=== PATIENT | female | born 1995 | race Caucasian/White ===

== ENCOUNTER 2024-04-05 11:07 | Emergency (ER) | payer OTHER, SELFPAY ==
[2024-04-05 11:13] VITALS: BP 149/102
[2024-04-05 12:01] VITALS: BP 141/94
[2024-04-05] MEDS: BENTYL 20 MG IM (12:10)
[2024-04-05] MEDS: NSS 1000 IV (12:10)
[2024-04-05] MEDS: REGLAN 10 MG IV (12:10)
--- NOTE | 2024-04-05 12:13 | ED.GENMED ---
History of Present Illness
General
Chief Complaint: Abdominal Pain
Source: patient
Exam Limitations: none
Time Seen by Provider: 04/05/24 11:48
Nursing documentation reviewed up to this point in time: agreed with
History of Present Illness
History of Present Illness:
48-year-old female presenting to the emergency department today with concerns of initial onset of diarrhea persisting loose brown 2 days ago then developing nausea vomiting over the next few hours some stomach cramping has been intermittently
uncomfortable over the past 2 days. Episode of vomiting this morning but overall symptoms are slightly improved. Has had chills. Denies any chest pain shortness of breath does have a mild headache does of a history of migraines.
Past History
Past History
ED Past Medical History: Other (migraines)
ED Past Surgical History: Orthopedic
Social History
Tobacco: Non-smoker
Alcohol: Occasional
Drug: None
Personal:
Living: with family
Employment: Employed
Review of Systems
Review of Systems
Allergies reviewed?: Yes
All Other Systems: ROS reviewed and negative except as documented in HPI and ROS
Phy Exam
Physical Exam
Physical Exam:
GENERAL: Alert , in no apparent distress
EYE: pupils equal and reactive
NECK: Supple, no significant adenopathy.
ENT: o/p clr, mmm.
CARDIAC: Regular rate and rhythm .
LUNGS: Clear breath sounds bilaterally, no acute respiratory distress, no wheezes/rales/rhonchi
ABDOMEN: Soft, without focal tenderness, no r/g, no cvat
NEUROLOGICAL: Alert and oriented, no focal neuro deficits
SKIN: Warm and dry, skin intact.
MUSCULOSKELETAL: No edema, well perfused.
PSYCH: Normal and appropriate interaction.
Course
Orders/Labs/Results
Orders:
Orders
04/05/24 11:14
Test Result ONCE
04/05/24 12:02
Dicyclomine HCl [Bentyl] 20 mg IM NOW STA
Metoclopramide [Reglan] 10 mg IV NOW STA
04/05/24 12:03
0.9% Sodium Chloride 1000 ml [Nss] 1,000 ml IV BOLUS
04/05/24 12:07
Complete Blood Count/With Diff Urgent
Comprehensive Metabolic Panel Urgent
HCG, Serum Qualitative Screen Urgent
Lipase Urgent
04/05/24 14:12
Famotidine [Pepcid] 20 mg IV NOW STA
Ketorolac [Toradol] 15 mg IV NOW STA
Ondansetron Injectable [Zofran] 4 mg IV NOW STA
Abnormal Lab Results
04/05/24
12:07
MCHC 32.9 L g/dL
(33.0-37.0)
Monocytes % 12.2 H %
(1.7-9.3)
Carbon Dioxide 21 L mmol/L
(22-30)
BUN 5 L mg/dl
(7-17)
04/05/24 12:07
04/05/24 12:07
Vital Signs
Initial and Last Documented VS:
Initial Vital Signs
Temp Pulse Resp Pulse Ox
99.6 F 105 18 100
04/05/24 11:09 04/05/24 11:09 04/05/24 11:09 04/05/24 11:09
Last Documented Vital Signs
Temp Pulse Resp BP Pulse Ox
99.6 F 100 18 141/94 100
04/05/24 11:13 04/05/24 11:13 04/05/24 12:05 04/05/24 12:01 04/05/24 12:01
MDM/Problems Addressed
MDM/Problems Addressed:
28-year-old female presenting to the emergency department today with concerns of initial diarrhea with developing nausea vomiting and stomach cramping over the past 2 days. Has had chills 1 episode of vomiting today but the maximal amount of
vomiting was 2 days ago. Diarrhea has been slightly improving as well. On arrival here mildly tachycardic temperature of 99.6 patient generally well-appearing no acute distress no ongoing retching or vomiting. Abdomen generally soft. Reassessed
patient claims that symptoms are significantly improved stable for outpatient management with likely viral gastroenteritis return precautions given.
*Critical Care Note
Total Time (30-74mins, 75-104mins- exclusive of procedures): Not Applicable
ED Attending Note
-
Portions of this chart may have been created with voice recognition software.� Occasional wrong word or��sound alike� substitutions may have occurred due to the inherent limitations of voice recognition software.
Discharge Plan
Departure
Patient Disposition: Home (Routine Discharge)
Date of Disposition: 04/05/24
Time of Disposition: 15:08
Patient with high blood pressure during this ER visit?: No
Condition: Good
Covid-19: Not Applicable
Discharge Problem:
Nausea, vomiting, and diarrhea
Instructions: Diarrhea in teens and adults, Viral gastroenteritis in adults
Prescriptions:
New
ondansetron 4 mg tablet,disintegrating
4 mg PO Q8H PRN (Reason: nausea and vomiting) Qty: 7 0RF
loperamide [Imodium A-D] 2 mg capsule
2 mg PO Q6H PRN (Reason: loose stool) Qty: 5 0RF
Referrals:
Romie Kothari PA-C [Family Provider] -
Activity Restrictions/Additional Instructions:
You came to the emergency department today with concerns of nausea vomiting diarrhea. Here you have a reassuring assessment. Please take the prescribed medications over the next few days and start to rehydrate. Return to the emergency department
for any worsening, new or concerning symptoms.
Interventions
Interventions:
*Risk Screen - Suicide Last Done: 04/05/24 11:09
*General Assessment Last Done: 04/05/24 11:09
*Neglect/Abuse Screening Last Done: 04/05/24 11:09
*ED COVID-19 Vaccine History Last Done: 04/05/24 12:05
XB-Jivmsd-Osgssowyqe Assessment Last Done: 04/05/24 12:04
Discharge Date and Time
Print Language: [id number]
[2024-04-05 12:16] LABS: % Eosinophils 0.8 % (0-6); % Immature Granulocytes 0.2 % (0-0.5); % Lymphocytes 30.7 % (20.5-51.1); % Monocytes 12.2 % (1.7-9.3); % Neutrophils 56.1 % (42.2-75.2); Absolute Lymphocytes 1.5 10^3/uL (1.2-3.4); Absolute Monocytes 0.6 10^3/uL (0.1-0.6); Absolute Neutrophils 2.7 10^3/uL (1.4-6.5); Hematocrit 38.9 % (37.0-47.0); Hemoglobin 12.8 g/dL (12.0-16.0); Mean Corp Hgb Conc. 32.9 g/dL (33.0-37.0); Mean Corpuscular Hgb 28.7 pg (27.0-31.0); Mean Corpuscular Volume 87.2 fL (81.0-99.0); Mean Platelet Volume 9.6 fL (7.4-10.4); Nucleated Red Blood Cells % 0 %; Platelet Count 306 10^3/uL (130-400); Red Blood Cell Count 4.46 10^6/uL (4.20-5.40); Red Cell Dist. Width 13.3 % (11.5-14.5); White Blood Cell Count 4.9 10^3/uL (4.8-10.8)
[2024-04-05 12:31] LABS: HCG, Serum Qualitative Screen Negative
[2024-04-05 12:35] LABS: ALT (SGPT) 19 U/L (0-35); AST (SGOT) 25 U/L (14-36); Albumin 4.8 g/dl (3.5-5.0); Alkaline Phosphatase 62 U/L (38-126); Blood Urea Nitrogen 5 mg/dl (7-17); Calcium 9.6 mg/dl (8.4-10.2); Carbon Dioxide 21 mmol/L (22-30); Chloride 104 mmol/L (98-107); Glucose 92 mg/dl (70-99); Lipase 62 U/L (23-300); Potassium 4.3 mmol/L (3.5-5.1); Sodium 140 mmol/L (135-145); Total Bilirubin 0.4 mg/dl (0.2-1.3); Total Protein 7.5 g/dl (6.3-8.2); eGFR > 60.00
[2024-04-05 13:00] VITALS: BP 104/89
[2024-04-05 14:00] VITALS: BP 99/65
[2024-04-05] MEDS: PEPCID 20 MG IV (14:16)
[2024-04-05] MEDS: ZOFRAN 4 MG IV (14:16)
[2024-04-05] MEDS: TORADOL 15 MG IV (14:16)
[2024-04-05 14:21] VITALS: BP 115/84
[2024-04-05 15:00] VITALS: BP 113/70
== END 2024-04-05 15:20 | disposition home or self-care (01) ==
LOC: EMR 11:07
PROVIDERS: Emergency Medicine; EMERGENCY PHYSICIAN Student in an Organized Health Care Education/Training Program; FAMILY PHYSICIAN Physician Assistant Medical
DX: R11.2 Nausea with vomiting, unspecified (principal); R19.7 Diarrhea, unspecified; R10.9 Unspecified abdominal pain
CPT/HCPCS: 96374; 96375; 96372; 99284; 80053; 83690; 84703; 85025

== ENCOUNTER → 2025-01-01 08:27 | Outpatient (REF) | payer BC, SELFPAY | LOC: HWRAD 08:27 | PROVIDERS: ATTENDING PHYSICIAN Obstetrics & Gynecology; FAMILY PHYSICIAN Physician Assistant Medical | DX: R10.2 Pelvic and perineal pain (principal); N94.6 Dysmenorrhea, unspecified | CPT/HCPCS: 76830; 76856 ==

== ENCOUNTER → 2025-07-01 08:32 | Outpatient (REF) | payer BC, SELFPAY | LOC: RAD 08:32 | PROVIDERS: ATTENDING PHYSICIAN Obstetrics & Gynecology; FAMILY PHYSICIAN Physician Assistant Medical | DX: N94.6 Dysmenorrhea, unspecified (principal); N83.209 Unspecified ovarian cyst, unspecified side | CPT/HCPCS: 76830; 76856 ==